=== PATIENT | female | born 1995 | race Caucasian/White ===

== ENCOUNTER 2017-09-12 15:08 | Emergency (ER) | payer OTHER ==
--- NOTE | 2017-09-12 15:48 | EDM.PDOC ---
ED HPI GENERAL MEDICAL PROBLEM - General Chief Complaint: Eye Problems Time Seen by Provider: 09/12/17 15:47 Source of Information: Reports: Patient History Limitations: Reports: No Limitations - History of Present Illness INITIAL COMMENTS - FREE TEXT/NARRATIVE: History of present illness: [22-year-old female comes in complaining of altered vision in the right eye. Patient discusses seeing a bright light colored floater in her right visual field. Patient denies total loss of vision, nausea vomiting or diarrhea. Patient indicates she went into a dark room or visual problems resolved. Patient initially describes something that sounds like a visual field cut on the right with further exploration it's a very bright floater that somewhat obliterates her vision because of the brightness.] Review of systems: As per history of present illness and below otherwise all systems reviewed and negative. Past medical history: As per history of present illness and as reviewed below otherwise noncontributory. Surgical history: As per history of present illness and as reviewed below otherwise noncontributory. Social history: No reported history of drug or alcohol abuse. Family history: As per history of present illness and as reviewed below otherwise noncontributory. Physical exam: HEENT: Atraumatic, normocephalic, pupils reactive, negative for conjunctival pallor or scleral icterus, mucous membranes moist, throat clear, neck supple, nontender, trachea midline. Facial tenderness over maxillary sinuses as well as periorbital sinuses right greater than left. Lungs: Clear to auscultation, breath sounds equal bilaterally, chest nontender. Heart: S1S2, regular, negative for clicks, rubs, or JVD. Abdomen: Soft, nondistended, nontender. Negative for masses or hepatosplenomegaly. Negative for costovertebral tenderness. Pelvis: Stable nontender. Genitourinary: Deferred. Rectal: Deferred. Extremities: Atraumatic, negative for cords or calf pain. Neurovascular unremarkable. Neuro: Awake, alert, oriented. Cranial nerves II through XII unremarkable. Cerebellum unremarkable. Motor and sensory unremarkable throughout. Exam nonfocal. Tonometry performed with numbers being 10, 12, 11. Patient indicates the pressure in the right side of her face increases when she is laid back Patient is having muscle spasms in her neck in the area of the levator scapula, the sternocleidomastoid, and the scalenes, with a concomitant tension headache. OB down to evaluate patient with a non-concerning NST but mild contractions noted to be occurring one every 3 minutes. Patient apparently does not perceive them per the OB nurse but they are mildly palpable. Dr. Alvarenga spoke with Dr. Montaño who indicated patient should go up to OB for further workup and evaluation. Diagnostics: [] Therapeutics: [Loratadine] Impression: [Sinusitus] Plan: [OB] Definitive disposition and diagnosis as appropriate pending reevaluation and review of above. left eye Pain Score (Numeric/FACES): 7 - Related Data Allergies Allergy/AdvReac Type Severity Reaction Status Date / Time No Known Allergies Allergy Verified 09/12/17 15:23 Home Meds: Home Meds Odp210/FA/Omega3/Dha/Fish Oil [ Gummies] 1 each PO DAILY 09/12/17 [ History] Past Medical History - Past Surgical History HEENT Surgical History: Reports: Oral Surgery Social & Family History - Family History Family Medical History: Noncontributory - Tobacco Use Smoking Status *Q: Never Smoker - Recreational Drug Use Recreational Drug Use: No ED ROS GENERAL - Review of Systems Review Of Systems: See Below (History of present illness) ED EXAM GENERAL W FULL EYE - Physical Exam Exam: See Below (History of present illness) Course - Vital Signs Last Recorded V/S: Last Vital Signs Temp 36.8 C 09/12/17 15:23 Pulse 98 09/12/17 15:23 Resp 18 09/12/17 15:23 BP 103/77 09/12/17 15:23 Pulse Ox 98 09/12/17 15:23 - Orders/Labs/Meds Meds: Medications Discontinued Medications Generic Name Dose Route Start Last Admin Trade Name Cecilioq PRN Reason Stop Dose Admin Loratadine 10 mg 09/12/17 15:49 09/12/17 16:02 Claritin PO 09/12/17 15:50 10 mg ONETIME ONE Administration Departure - Departure Time of Disposition: 16:22 Disposition: Still A Patient 30 Condition: Good Clinical Impression: Sinusitis - Discharge Information Referrals: PCP,None [Primary Care Provider] - Forms: ED Department Discharge
[2017-09-12] MEDS ORDERED: Loratadine 10 MG Tab PO ONE (15:49)
== END 2017-09-12 16:27 | disposition still patient (30) ==
LOC: MW.ED 15:08 → EDSTATUS 15:15 → MW.ED 16:27
DX: O99.513 Diseases of the respiratory system complicating pregnancy, third trimester (principal); J32.9 Chronic sinusitis, unspecified; Z3A.33 33 weeks gestation of pregnancy
CPT/HCPCS: 99283; A9270

== ENCOUNTER 2017-10-27 16:56 | Inpatient (IN) | payer OTHER ==
[2017-10-27] MEDS ORDERED: Tranexamic Acid 1,000 MG in Sodium Chloride 0.9% 100 ML IV PRN (17:10)
[2017-10-27] MEDS ORDERED: Nalbuphine 10 MG/1 ML Vial IVPUSH PRN (17:10)
[2017-10-27] MEDS ORDERED: Methylergonovine 0.2 MG/1 ML Amp IM PRN (17:10)
[2017-10-27] MEDS ORDERED: Carboprost Tromethamine 250 MCG/1 ML Amp IM PRN (17:10)
[2017-10-27] MEDS ORDERED: Sodium Chloride 0.9% 10 ML Syringe FLUSH PRN (17:10)
[2017-10-27] MEDS ORDERED: Lidocaine 1% 50 ML MDV INJECT PRN (17:10)
[2017-10-27] MEDS ORDERED: Sodium Chloride 0.9% 2.5 ML Syringe FLUSH PRN (17:10)
[2017-10-27] MEDS ORDERED: Misoprostol 25 MCG (1/4 of 100 MCG) Tab VAG PRN (17:10)
[2017-10-27] MEDS ORDERED: Water For Irrigation,Sterile 1,000 ML Container IRR PRN (17:10)
[2017-10-27] MEDS ORDERED: Butorphanol 1 MG/ML SDV IVPUSH PRN (17:10)
[2017-10-27] MEDS ORDERED: Misoprostol 200 MCG Tab PO PRN (17:10)
[2017-10-27] MEDS ORDERED: Misoprostol 25 MCG (1/4 of 100 MCG) Tab VAG SCH (17:15)
[2017-10-27] MEDS ORDERED: Oxytocin/0.9 % Sodium Chloride 30 UNIT/500 ML BAG IV SCH (17:15)
--- NOTE | 2017-10-27 17:50 | PCM.SN ---
- Free Text/Narrative Note: Notified by nursing that they are having difficulty obtaining PIV access. 18g PIV started to the Rt FA. Secured with tape and tegaderm. Pt tolerated placement well.
[2017-10-27] MEDS: Lactated Ringers 1,000 ML IV SCH (21:50)
[2017-10-27] MEDS: Terbutaline 1 MG/ML SDV SUBCUT PRN (22:14)
[2017-10-28] MEDS: Lactated Ringers 1,000 ML IV SCH ×2 (03:15→13:00)
[2017-10-28] MEDS: Terbutaline 1 MG/ML SDV SUBCUT PRN (03:24)
[2017-10-28] MEDS ORDERED: Oxytocin/0.9 % Sodium Chloride 30 UNIT/500 ML BAG IV SCH (05:00)
[2017-10-28] MEDS ORDERED: Ropivacaine 0.2% 2 MG/ML 20 ML SDV ONE (12:24)
--- NOTE | 2017-10-28 12:53 | PCM.PREANE ---
Preanesthetic Assessment - Anesthesia/Transfusion/Family Hx Anesthesia History: Prior Anesthesia Without Reaction Family History of Anesthesia Reaction: No - Review of Systems Other: Reports: None - Physical Assessment Height: 5 ft 1 in Weight: 67.585 kg ASA Class: 2 Mental Status: Alert & Oriented x3 Airway Class: Mallampati = 1 Dentition: Reports: Normal Dentition Thyro-Mental Finger Breadths: 3 Mouth Opening Finger Breadths: 3 ROM/Head Extension: Full - Lab Values: Laboratory Last Values WBC 12.61 K/uL (4.0-11.0) H 10/27/17 17:40 RBC 4.13 M/uL (4.30-5.90) L 10/27/17 17:40 Hgb 11.4 g/dL (12.0-16.0) L 10/27/17 17:40 Hct 34.1 % (36.0-46.0) L 10/27/17 17:40 MCV 82.6 fL (80.0-98.0) 10/27/17 17:40 MCH 27.6 pg (27.0-32.0) 10/27/17 17:40 MCHC 33.4 g/dL (31.0-37.0) 10/27/17 17:40 RDW Std Deviation 46.6 fl (28.0-62.0) 10/27/17 17:40 RDW Coeff of Jackie 16 % (11.0-15.0) H 10/27/17 17:40 Plt Count 182 K/uL (150-400) 10/27/17 17:40 MPV 11.40 fL (7.40-12.00) 10/27/17 17:40 Nucleated RBC % 0.0 /100WBC 10/27/17 17:40 Nucleated RBCs # 0 K/uL 10/27/17 17:40 Blood Type A POSITIVE 10/27/17 17:40 Antibody Screen NEGATIVE 10/27/17 17:40 - Allergies Allergies/Adverse Reactions: Allergies Allergy/AdvReac Type Severity Reaction Status Date / Time No Known Allergies Allergy Verified 09/12/17 15:23 - Blood Blood Available: Yes Product(s) Available: PRBC - Acknowledgements Anesthesia Type Planned: Epidural Pt an Appropriate Candidate for the Planned Anesthesia: Yes Alternatives and Risks of Anesthesia Discussed w Pt/Guardian: Yes Pt/Guardian Understands and Agrees with Anesthesia Plan: Yes PreAnesthesia Questionnaire - Past Health History Medical/Surgical History: Denies Medical/Surgical History - Past Surgical History HEENT Surgical History: Reports: Oral Surgery - SUBSTANCE USE Smoking Status *Q: Never Smoker Second Hand Smoke Exposure: No Recreational Drug Use History: No - HOME MEDS Home Medications: Home Meds Eog998/FA/Omega3/Dha/Fish Oil [ Gummies] 1 each PO DAILY 09/12/17 [ History] - CURRENT (IN HOUSE) MEDS Current Meds: Current Medications Butorphanol Tartrate (Stadol) 1 mg IVPUSH Q1H PRN PRN Reason: Pain Carboprost Tromethamine (Hemabate Ds) 250 mcg IM ASDIRECTED PRN PRN Reason: Post Hemorrhage Lactated Ringer's (Ringers, Lactated) 1,000 mls @ 150 mls/hr IV ASDIRECTED SHAHNAZ Last Admin: 10/28/17 03:15 Dose: 150 mls/hr Oxytocin/Sodium Chloride (Oxytocin 30 Unit/500 Ml-Ns) 30 unit in 500 mls @ 999 mls/hr IV TITRATE SHAHNAZ Oxytocin/Sodium Chloride (Oxytocin 30 Unit/500 Ml-Ns) 30 unit in 500 mls @ 2 mls/hr IV TITRATE SHAHNAZ; 2 MUNITS/MIN PRN Reason: Protocol Last Titration: 10/28/17 10:40 Dose: 3 munits/min, 3 mls/hr Tranexamic Acid 1,000 mg/ (Sodium Chloride) 110 mls @ 600 mls/hr IV ONETIME PRN PRN Reason: Bleeding Lidocaine HCl (Xylocaine 1%) 50 ml INJECT .ONCE PRN PRN Reason: Laceration repair Methylergonovine Maleate (Methergine) 0.2 mg IM ASDIRECTED PRN PRN Reason: Post Hemorrhage Misoprostol (Cytotec) 200 mcg PO .ONCE PRN PRN Reason: Post Hemorrhage Misoprostol (Cytotec) 25 mcg VAG .ONCE SHAHNAZ Misoprostol (Cytotec) 25 mcg VAG Q4H PRN PRN Reason: Cervical Ripening Last Admin: 10/27/17 17:58 Dose: 25 mcg Nalbuphine HCl (Nubain) 10 mg IVPUSH Q1H PRN PRN Reason: Pain (severe 7-10) Sodium Chloride (Saline Flush) 10 ml FLUSH ASDIRECTED PRN PRN Reason: Keep Vein Open Sodium Chloride (Saline Flush) 2.5 ml FLUSH ASDIRECTED PRN PRN Reason: Keep Vein Open Sterile Water (Sterile Water For Irrigation) 1,000 ml IRR ASDIRECTED PRN PRN Reason: delivery Terbutaline Sulfate (Brethine) 0.25 mg SUBCUT ASDIRECTED PRN PRN Reason: Tacysystole Last Admin: 10/28/17 03:24 Dose: 0.25 mg Discontinued Medications Fentanyl/Bupivacaine HCl (Zqyslmzc-Bqksw-Rz 2 Mcg/Ml-0.125%) Confirm Administered Dose 100 mls @ as directed EP .STK-MED ONE Stop: 10/28/17 12:25 Ropivacaine (Naropin 0.2%) Confirm Administered Dose 20 ml .ROUTE .STK-MED ONE Stop: 10/28/17 12:25
[2017-10-28] MEDS ORDERED: Ondansetron 4 MG/2 ML SDV IVPUSH ONE (14:20)
[2017-10-28] MEDS ORDERED: Ondansetron 4 MG/2 ML SDV ONE (14:22)
[2017-10-28] MEDS ORDERED: oxyCODONE 5 MG Tab PO PRN (17:18)
[2017-10-28] MEDS ORDERED: Witch Hazel Medicated Pads 40/Jar TOP PRN (17:18)
[2017-10-28] MEDS ORDERED: Lanolin 100% Cream 7 GM Tube TOP PRN (17:18)
[2017-10-28] MEDS ORDERED: Docusate Sodium 100 MG Cap PO PRN (17:18)
[2017-10-28] MEDS ORDERED: Bisacodyl 10 MG Supp RECTAL PRN (17:18)
[2017-10-28] MEDS ORDERED: Benzocaine/Menthol 20%-0.5% Spray 78 GM Cannister TOP PRN (17:18)
[2017-10-28] MEDS ORDERED: Ibuprofen 400 MG Tab PO PRN (17:18)
[2017-10-28] MEDS ORDERED: Acetaminophen 500 MG Tab PO PRN ×2 (17:18)
--- NOTE | 2017-10-28 18:14 | PCM48HPAN ---
Post Anesthesia Note - EVALUATION WITHIN 48HRS OF ANESTHETIC Vital Signs in Normal Range: Yes Patient Participated in Evaluation: Yes Respiratory Function Stable: Yes Airway Patent: Yes Cardiovascular Function Stable: Yes Hydration Status Stable: Yes Pain Control Satisfactory: Yes Nausea and Vomiting Control Satisfactory: Yes Mental Status Recovered: Yes
[2017-10-28] MEDS: Ibuprofen 800 MG Tab PO PRN (21:02)
--- NOTE | 2017-10-28 22:29 | OR ---
SURGEON: Dipiak Montaño M.D. DATE OF PROCEDURE: 10/28/2017 PREOPERATIVE DIAGNOSES: 1. A 40 and 2-week intrauterine . 2. Polyhydramnios. POSTOPERATIVE DIAGNOSES: 1. A 40 and 2-week intrauterine . 2. Polyhydramnios. PROCEDURE: 1. Spontaneous vaginal delivery. 2. Second-degree midline laceration repaired. PRIMARY SURGEON: Dipika Montaño M.D. ANESTHESIA: Epidural. ESTIMATED BLOOD LOSS: 350 mL. COMPLICATIONS: None. FINDINGS: Term female, score 9 at one minute, 10 at five minutes. Weight is pending. Spontaneous delivery, intact placenta, 3-vessel cord. DISPOSITION: to nursery, mom in LDRP, stable. DESCRIPTION OF PROCEDURE: Lisa lechuga is a 22-year-old G1, P0, at 42 weeks gestational age, who presented on the evening of 10/27/2017 for scheduled induction of labor due to polyhydramnios, term gestation. On admission, the patient was found to be 1-2 cm. She was admitted, routine labs were drawn. heart tones in the 140s. 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 She did receive two doses of terbutaline for the hyperstimulation and late deceleration that were occurring with it. Thereafter the heart tones once again resuscitated to 140s with good variability. No deceleration was noted. Therefore low-dose Pitocin was initiated on the morning of 10/28/2017. The patient became uncomfortable. heart tones remained category one. The patient was allowed to ambulate within the room. Shortly before noon she agreed to undergo amniotomy, this was performed successfully, large amount of clear fluid was returned and thereafter she began to progress more rapidly. She became much more comfortable. She was found to be approximately 3 cm at that time. Shortly before receiving her epidural, she was found to be 4 cm dilatated, 9 cm, -1 station. Underwent epidural satisfactorily, became more comfortable. heart tones remained in the 130s to 140s and the patient progressed through the afternoon hours. Shortly before 4:00 p.m., the patient was feeling some pressure, but otherwise comfortable with the epidural. She was found to be complete, 100% effaced, +2 station. heart tones remained in the 140s, therefore she began pushing efforts. Pitocin was only at 3 milliunits per minute per minute. The patient pushed for approximately 30 minutes, was found to be a +3 station. I was called for delivery. Upon arrival, the patient was placed in modified dorsal position, prepped and draped in the usual aseptic manner. Continuing with pushing efforts, was able to deliver infant's head atraumatically, spontaneously, followed by anterior shoulder, posterior shoulder, remainder of the body. There was nuchal cord x1, reduced manually. The 's oropharynx and nares were bulb suctioned. Cord was clamped x2 and cut. Infant was handed off to her mother, attending nursing staff at her side. Cord arterial, cord venous, cord blood sampling was obtained. Light suprapubic pressure was applied while the placenta was delivered spontaneously intact. Vigorous fundal uterine massage was then applied while 30 units Pitocin was delivered in 500 mL IV fluid. Upon inspection of cervix, vaginal sidewalls, and perineum, there was found to be a second-degree midline laceration, repaired using 2-0 Vicryl in usual fashion. There was also a first-degree right hymenal laceration, was repaired using 3-0 Vicryl with [id number] suture. Hemostasis thereafter evident. Uterus remained firm. Hemostasis remained evident. Sponge count and needle count were correct. The patient remained in LDRP. Infant in nursery. ELSA / LOUIE /[id number] ANDREI
[2017-10-29] MEDS: Ibuprofen 800 MG Tab PO PRN ×2 (07:49→18:10)
--- NOTE | 2017-10-29 08:14 | PCM.PNPP ---
<Deana Valencia - Last Filed: 10/29/17 08:12> - General Info Date of Service: 10/29/17 Functional Status: Reports: Pain Controlled, Tolerating Diet, Ambulating, Urinating - Review of Systems General: Denies: Fever, Weakness, Fatigue Pulmonary: Denies: Shortness of Breath, Pleuritic Chest Pain, Cough Cardiovascular: Denies: Chest Pain, Palpitations, Dyspnea on Exertion Gastrointestinal: Denies: Abdominal Pain Genitourinary: Denies: Dysuria - General Info Date of Service: 10/29/17 - Patient Data Vital Signs - Most Recent: Last Vital Signs Temp 36.3 C 10/29/17 06:00 Pulse 72 10/29/17 06:00 Resp 16 10/29/17 06:00 BP 117/63 10/29/17 06:00 Pulse Ox 99 10/29/17 06:00 Weight - Most Recent: 67.585 kg I&O - Last 24 Hours: Intake & Output 10/28/17 10/29/17 10/29/17 22:59 06:59 14:59 Intake Total 500 Balance 500 Lab Results - Last 24 Hours: Laboratory Results - last 24 hr 10/29/17 Range/Units 06:37 Hgb 9.5 L (12.0-16.0) g/dL Hct 29.3 L (36.0-46.0) % Med Orders - Current: Current Medications Acetaminophen (Tylenol Extra Strength) 500 mg PO Q4H PRN PRN Reason: Pain Acetaminophen (Tylenol Extra Strength) 1,000 mg PO Q4H PRN PRN Reason: Pain Benzocaine/Menthol (Dermoplast Pain Relief 20%-0.5% Foster) 78 gm TOP ASDIRECTED PRN PRN Reason: Perineal Comfort Measure Bisacodyl (Dulcolax) 10 mg RECTAL .ONCE PRN PRN Reason: Constipation Carboprost Tromethamine (Hemabate Ds) 250 mcg IM ASDIRECTED PRN PRN Reason: Post Hemorrhage Docusate Sodium (Colace) 100 mg PO BID PRN PRN Reason: Constipation Emollient Ointment (Lansinoh Hpa) 0 gm TOP ASDIRECTED PRN PRN Reason: Sore Nipples Lactated Ringer's (Ringers, Lactated) 1,000 mls @ 150 mls/hr IV ASDIRECTED SHAHNAZ Last Admin: 10/28/17 13:00 Dose: 500 mls/hr Oxytocin/Sodium Chloride (Oxytocin 30 Unit/500 Ml-Ns) 30 unit in 500 mls @ 999 mls/hr IV TITRATE SHAHNAZ Last Infusion: 10/28/17 18:29 Dose: 250 mls/hr Oxytocin/Sodium Chloride (Oxytocin 30 Unit/500 Ml-Ns) 30 unit in 500 mls @ 2 mls/hr IV TITRATE SHAHNAZ; 2 MUNITS/MIN PRN Reason: Protocol Last Titration: 10/28/17 10:40 Dose: 3 munits/min, 3 mls/hr Tranexamic Acid 1,000 mg/ (Sodium Chloride) 110 mls @ 600 mls/hr IV ONETIME PRN PRN Reason: Bleeding Ibuprofen (Motrin) 400 mg PO Q4H PRN PRN Reason: Pain Ibuprofen (Motrin) 800 mg PO Q6H PRN PRN Reason: Pain Last Admin: 10/29/17 07:49 Dose: 800 mg Lidocaine HCl (Xylocaine 1%) 50 ml INJECT .ONCE PRN PRN Reason: Laceration repair Methylergonovine Maleate (Methergine) 0.2 mg IM ASDIRECTED PRN PRN Reason: Post Hemorrhage Misoprostol (Cytotec) 200 mcg PO .ONCE PRN PRN Reason: Post Hemorrhage Nalbuphine HCl (Nubain) 10 mg IVPUSH Q1H PRN PRN Reason: Pain (severe 7-10) Oxycodone HCl (Oxycodone) 5 mg PO Q2H PRN PRN Reason: Pain Sodium Chloride (Saline Flush) 10 ml FLUSH ASDIRECTED PRN PRN Reason: Keep Vein Open Sodium Chloride (Saline Flush) 2.5 ml FLUSH ASDIRECTED PRN PRN Reason: Keep Vein Open Terbutaline Sulfate (Brethine) 0.25 mg SUBCUT ASDIRECTED PRN PRN Reason: Tacysystole Last Admin: 10/28/17 03:24 Dose: 0.25 mg Witch Franny (Tucks) 1 pad TOP ASDIRECTED PRN PRN Reason: comfort care Discontinued Medications Butorphanol Tartrate (Stadol) 1 mg IVPUSH Q1H PRN PRN Reason: Pain Fentanyl/Bupivacaine HCl (Wsqnpzjd-Sktmu-Co 2 Mcg/Ml-0.125%) Confirm Administered Dose 100 mls @ as directed EP .STK-MED ONE Stop: 10/28/17 12:25 Misoprostol (Cytotec) 25 mcg VAG .ONCE SHAHNAZ Misoprostol (Cytotec) 25 mcg VAG Q4H PRN PRN Reason: Cervical Ripening Last Admin: 10/27/17 17:58 Dose: 25 mcg Ondansetron HCl (Zofran) 4 mg IVPUSH ONETIME ONE Stop: 10/28/17 14:21 Last Admin: 10/28/17 14:26 Dose: 4 mg Ondansetron HCl (Zofran) Confirm Administered Dose 4 mg .ROUTE .STK-MED ONE Stop: 10/28/17 14:23 Ropivacaine (Naropin 0.2%) Confirm Administered Dose 20 ml .ROUTE .STK-MED ONE Stop: 10/28/17 12:25 Sterile Water (Sterile Water For Irrigation) 1,000 ml IRR ASDIRECTED PRN PRN Reason: delivery Last Admin: 10/28/17 16:45 Dose: 1,000 ml - Interaction Disposition, : to Nursery Infant Feeding: Attempted ; Nursed Fair/Poor Support Person: - Recovery Exam Fundal Tone: Firm Fundal Level: At Umbilicus Fundal Placement: Midline Lochia Amount: Small Lochia Color: Rubra/Red Perineum Description: Edematous Episiotomy/Laceration: Approximated Urinary Elimination: Voided - Exam General: Alert, Oriented Neck: Supple Lungs: Clear to Auscultation, Normal Respiratory Effort Cardiovascular: Regular Rate, Regular Rhythm GI/Abdominal Exam: Normal Bowel Sounds, Soft, No Distention Extremities: Normal Inspection, Pedal Edema (trace) Skin: Warm, Dry, Intact - Problem List & Annotations (1) Vaginal delivery SNOMED Code(s): 569358092 Code(s): O80 - ENCOUNTER FOR FULL-TERM UNCOMPLICATED DELIVERY Status: Acute Current Visit: Yes - Problem List Review Problem List Initiated/Reviewed/Updated: Yes - Assessment Assessment:: PPD#1 from . Minimal pain and lochia. Work on breast feeding today. Anticipate discharge home tomorrow. - Plan Plan:: Continue routine post- cares. Aim for discharge tomorrow. <Dipika Montaño R - Last Filed: 10/29/17 08:34> - Patient Data Vital Signs - Most Recent: Last Vital Signs Temp 36.3 C 10/29/17 06:00 Pulse 72 10/29/17 06:00 Resp 16 10/29/17 06:00 BP 117/63 10/29/17 06:00 Pulse Ox 99 10/29/17 06:00 I&O - Last 24 Hours: Intake & Output 10/28/17 10/29/17 10/29/17 22:59 06:59 14:59 Intake Total 500 Balance 500 Lab Results - Last 24 Hours: Laboratory Results - last 24 hr 10/29/17 Range/Units 06:37 Hgb 9.5 L (12.0-16.0) g/dL Hct 29.3 L (36.0-46.0) % Med Orders - Current: Current Medications Acetaminophen (Tylenol Extra Strength) 500 mg PO Q4H PRN PRN Reason: Pain Acetaminophen (Tylenol Extra Strength) 1,000 mg PO Q4H PRN PRN Reason: Pain Benzocaine/Menthol (Dermoplast Pain Relief 20%-0.5% Foster) 78 gm TOP ASDIRECTED PRN PRN Reason: Perineal Comfort Measure Bisacodyl (Dulcolax) 10 mg RECTAL .ONCE PRN PRN Reason: Constipation Carboprost Tromethamine (Hemabate Ds) 250 mcg IM ASDIRECTED PRN PRN Reason: Post Hemorrhage Docusate Sodium (Colace) 100 mg PO BID PRN PRN Reason: Constipation Emollient Ointment (Lansinoh Hpa) 0 gm TOP ASDIRECTED PRN PRN Reason: Sore Nipples Lactated Ringer's (Ringers, Lactated) 1,000 mls @ 150 mls/hr IV ASDIRECTED SHAHNAZ Last Admin: 10/28/17 13:00 Dose: 500 mls/hr Oxytocin/Sodium Chloride (Oxytocin 30 Unit/500 Ml-Ns) 30 unit in 500 mls @ 999 mls/hr IV TITRATE SHAHNAZ Last Infusion: 10/28/17 18:29 Dose: 250 mls/hr Oxytocin/Sodium Chloride (Oxytocin 30 Unit/500 Ml-Ns) 30 unit in 500 mls @ 2 mls/hr IV TITRATE SHAHNAZ; 2 MUNITS/MIN PRN Reason: Protocol Last Titration: 10/28/17 10:40 Dose: 3 munits/min, 3 mls/hr Tranexamic Acid 1,000 mg/ (Sodium Chloride) 110 mls @ 600 mls/hr IV ONETIME PRN PRN Reason: Bleeding Ibuprofen (Motrin) 400 mg PO Q4H PRN PRN Reason: Pain Ibuprofen (Motrin) 800 mg PO Q6H PRN PRN Reason: Pain Last Admin: 10/29/17 07:49 Dose: 800 mg Lidocaine HCl (Xylocaine 1%) 50 ml INJECT .ONCE PRN PRN Reason: Laceration repair Methylergonovine Maleate (Methergine) 0.2 mg IM ASDIRECTED PRN PRN Reason: Post Hemorrhage Misoprostol (Cytotec) 200 mcg PO .ONCE PRN PRN Reason: Post Hemorrhage Nalbuphine HCl (Nubain) 10 mg IVPUSH Q1H PRN PRN Reason: Pain (severe 7-10) Oxycodone HCl (Oxycodone) 5 mg PO Q2H PRN PRN Reason: Pain Sodium Chloride (Saline Flush) 10 ml FLUSH ASDIRECTED PRN PRN Reason: Keep Vein Open Sodium Chloride (Saline Flush) 2.5 ml FLUSH ASDIRECTED PRN PRN Reason: Keep Vein Open Terbutaline Sulfate (Brethine) 0.25 mg SUBCUT ASDIRECTED PRN PRN Reason: Tacysystole Last Admin: 10/28/17 03:24 Dose: 0.25 mg Witch Franny (Tucks) 1 pad TOP ASDIRECTED PRN PRN Reason: comfort care Discontinued Medications Butorphanol Tartrate (Stadol) 1 mg IVPUSH Q1H PRN PRN Reason: Pain Fentanyl/Bupivacaine HCl (Spcviffp-Rhpnn-Us 2 Mcg/Ml-0.125%) Confirm Administered Dose 100 mls @ as directed EP .STK-MED ONE Stop: 10/28/17 12:25 Misoprostol (Cytotec) 25 mcg VAG .ONCE SHAHNAZ Misoprostol (Cytotec) 25 mcg VAG Q4H PRN PRN Reason: Cervical Ripening Last Admin: 10/27/17 17:58 Dose: 25 mcg Ondansetron HCl (Zofran) 4 mg IVPUSH ONETIME ONE Stop: 10/28/17 14:21 Last Admin: 10/28/17 14:26 Dose: 4 mg Ondansetron HCl (Zofran) Confirm Administered Dose 4 mg .ROUTE .STK-MED ONE Stop: 10/28/17 14:23 Ropivacaine (Naropin 0.2%) Confirm Administered Dose 20 ml .ROUTE .STK-MED ONE Stop: 10/28/17 12:25 Sterile Water (Sterile Water For Irrigation) 1,000 ml IRR ASDIRECTED PRN PRN Reason: delivery Last Admin: 10/28/17 16:45 Dose: 1,000 ml - My Orders Last 24 Hours: My Active Orders 10/28/17 17:18 Patient Status [ADT] Routine May Shower [RC] ASDIRECTED Up ad Tracey [RC] ASDIRECTED Vital Signs [RC] PER UNIT ROUTINE Acetaminophen [Tylenol Extra Strength] 1,000 mg PO Q4H PRN Acetaminophen [Tylenol Extra Strength] 500 mg PO Q4H PRN Benzocaine/Menthol [Dermoplast Pain Relief 20%-0.5% Foster] 78 gm TOP ASDIRECTED PRN Bisacodyl [Dulcolax] 10 mg RECTAL .ONCE PRN Docusate Sodium [Colace] 100 mg PO BID PRN Ibuprofen [Motrin] 400 mg PO Q4H PRN Ibuprofen [Motrin] 800 mg PO Q6H PRN Lanolin [Lansinoh HPA] See Dose Instructions TOP ASDIRECTED PRN Witch Franny [Tucks] 1 pad TOP ASDIRECTED PRN oxyCODONE 5 mg PO Q2H PRN Assess Lochia [WOMSER] Per Unit Routine Assess Uterine Involution [WOMSER] Per Unit Routine Peripheral IV Discontinue [OM.PC] Routine 10/28/17 17:19 Ice Therapy [OM.PC] Per Unit Routine Perineal Care [OM.PC] Per Unit Routine Sitz Bath [OM.PC] Per Unit Routine 10/28/17 Dinner Regular Diet [DIET] - Plan Plan:: Patient seen and examined, agree with above.
[2017-10-30] MEDS ORDERED: Witch Hazel Medicated Pads 40/Jar TOP ONE (03:18)
[2017-10-30] MEDS: Ibuprofen 800 MG Tab PO PRN (04:21)
--- NOTE | 2017-10-30 09:01 | PCM.PNPP ---
- General Info Date of Service: 10/30/17 Functional Status: Reports: Pain Controlled, Tolerating Diet, Ambulating, Urinating - Review of Systems General: Denies: Fever, Weakness Pulmonary: Denies: Shortness of Breath Cardiovascular: Denies: Chest Pain, Palpitations, Lightheadedness Gastrointestinal: Denies: Abdominal Pain, Nausea, Vomiting Genitourinary: Denies: Flank Pain Neurological: Reports: No Symptoms Psychiatric: Reports: No Symptoms - General Info Date of Service: 10/30/17 - Patient Data Vital Signs - Most Recent: Last Vital Signs Temp 36.9 C 10/29/17 21:36 Pulse 65 10/29/17 21:36 Resp 16 10/29/17 21:36 BP 108/68 10/29/17 21:36 Pulse Ox 97 10/29/17 17:35 Weight - Most Recent: 67.585 kg Med Orders - Current: Current Medications Acetaminophen (Tylenol Extra Strength) 500 mg PO Q4H PRN PRN Reason: Pain Acetaminophen (Tylenol Extra Strength) 1,000 mg PO Q4H PRN PRN Reason: Pain Last Admin: 10/30/17 08:55 Dose: 1,000 mg Benzocaine/Menthol (Dermoplast Pain Relief 20%-0.5% [place]) 78 gm TOP ASDIRECTED PRN PRN Reason: Perineal Comfort Measure Bisacodyl (Dulcolax) 10 mg RECTAL .ONCE PRN PRN Reason: Constipation Carboprost Tromethamine (Hemabate Ds) 250 mcg IM ASDIRECTED PRN PRN Reason: Post Hemorrhage Docusate Sodium (Colace) 100 mg PO BID PRN PRN Reason: Constipation Emollient Ointment (Lansinoh Hpa) 0 gm TOP ASDIRECTED PRN PRN Reason: Sore Nipples Last Admin: 10/29/17 21:28 Dose: 1 applic Lactated Ringer's (Ringers, Lactated) 1,000 mls @ 150 mls/hr IV ASDIRECTED [facility] Last Admin: 10/28/17 13:00 Dose: 500 mls/hr Oxytocin/Sodium Chloride (Oxytocin 30 Unit/500 Ml-Ns) 30 unit in 500 mls @ 999 mls/hr IV TITRATE [facility] Last Infusion: 10/28/17 18:29 Dose: 250 mls/hr Oxytocin/Sodium Chloride (Oxytocin 30 Unit/500 Ml-Ns) 30 unit in 500 mls @ 2 mls/hr IV TITRATE SHAHNAZ; 2 MUNITS/MIN PRN Reason: Protocol Last Titration: 10/28/17 10:40 Dose: 3 munits/min, 3 mls/hr Tranexamic Acid 1,000 mg/ (Sodium Chloride) 110 mls @ 600 mls/hr IV ONETIME PRN PRN Reason: Bleeding Ibuprofen (Motrin) 400 mg PO Q4H PRN PRN Reason: Pain Ibuprofen (Motrin) 800 mg PO Q6H PRN PRN Reason: Pain Last Admin: 10/30/17 04:21 Dose: 800 mg Lidocaine HCl (Xylocaine 1%) 50 ml INJECT .ONCE PRN PRN Reason: Laceration repair Methylergonovine Maleate (Methergine) 0.2 mg IM ASDIRECTED PRN PRN Reason: Post Hemorrhage Misoprostol (Cytotec) 200 mcg PO .ONCE PRN PRN Reason: Post Hemorrhage Nalbuphine HCl (Nubain) 10 mg IVPUSH Q1H PRN PRN Reason: Pain (severe 7-10) Oxycodone HCl (Oxycodone) 5 mg PO Q2H PRN PRN Reason: Pain Sodium Chloride (Saline Flush) 10 ml FLUSH ASDIRECTED PRN PRN Reason: Keep Vein Open Sodium Chloride (Saline Flush) 2.5 ml FLUSH ASDIRECTED PRN PRN Reason: Keep Vein Open Terbutaline Sulfate (Brethine) 0.25 mg SUBCUT ASDIRECTED PRN PRN Reason: Tacysystole Last Admin: 10/28/17 03:24 Dose: 0.25 mg Witch Franny (Tucks) 1 pad TOP ASDIRECTED PRN PRN Reason: comfort care Discontinued Medications Butorphanol Tartrate (Stadol) 1 mg IVPUSH Q1H PRN PRN Reason: Pain Fentanyl/Bupivacaine HCl (Evipnhmn-Ismma-Hy 2 Mcg/Ml-0.125%) Confirm Administered Dose 100 mls @ as directed EP .STK-MED ONE Stop: 10/28/17 12:25 Misoprostol (Cytotec) 25 mcg VAG .ONCE SHAHNAZ Misoprostol (Cytotec) 25 mcg VAG Q4H PRN PRN Reason: Cervical Ripening Last Admin: 10/27/17 17:58 Dose: 25 mcg Ondansetron HCl (Zofran) 4 mg IVPUSH ONETIME ONE Stop: 10/28/17 14:21 Last Admin: 10/28/17 14:26 Dose: 4 mg Ondansetron HCl (Zofran) Confirm Administered Dose 4 mg .ROUTE .STK-MED ONE Stop: 10/28/17 14:23 Ropivacaine (Naropin 0.2%) Confirm Administered Dose 20 ml .ROUTE .STK-MED ONE Stop: 10/28/17 12:25 Sterile Water (Sterile Water For Irrigation) 1,000 ml IRR ASDIRECTED PRN PRN Reason: delivery Last Admin: 10/28/17 16:45 Dose: 1,000 ml Witch Franny (Tucks) Confirm Administered Dose 1 pad TOP .STK-MED ONE Stop: 10/30/17 03:19 Last Admin: 10/30/17 05:44 Dose: Not Given - Infant Interaction Disposition, : to Nursery Feeding: Attempted ; Nursed Fair/Poor Support Person: - Recovery Exam Fundal Tone: Firm Fundal Level: At Umbilicus Fundal Placement: Midline Lochia Amount: Small Lochia Color: Rubra/Red Perineum Description: Edematous Episiotomy/Laceration: Approximated Bladder Status: Voiding Urinary Elimination: Voided - Exam General: Alert, Oriented Lungs: Normal Respiratory Effort Cardiovascular: Regular Rate, Regular Rhythm GI/Abdominal Exam: Normal Bowel Sounds, Soft Extremities: Normal Capillary Refill, Pedal Edema (trace). No: Luke's Sign Skin: Warm, Dry, Intact Psy/Mental Status: Alert, Normal Affect - Problem List Review Problem List Initiated/Reviewed/Updated: Yes - My Orders Last 24 Hours: My Active Orders 10/30/17 08:59 Ready for Discharge [RC] PER UNIT ROUTINE - Assessment Assessment:: PPD#2 from . - Plan Plan:: Discharge to home today. Infection and bleeding warnings reviewed. Follow up at [facility] 6 weeks. Discharge instructions reviewed.
== END 2017-10-30 10:55 | disposition home or self-care (01) | DRG 775 ==
LOC: MW.OBCHECK 16:56 → MW.OB 16:58 → MW.OBCHECK 17:11 → UNDOADMOB 17:11 → INTOOBSV 17:18 → OBSVTOIN 17:18 → MW.OB 10-28 16:51 → OBSVTOIN 10-28 16:51 → MW.OB 10-28 22:00 → UNDODISIN 10-30 10:55
PROVIDERS: ADMIT Obstetrics & Gynecology; ATTEND Obstetrics & Gynecology
PROC: 10E0XZZ Delivery of Products of Conception, External Approach (ICD-10-PCS; principal; 2017-10-27)
PROC: 0KQM0ZZ Repair Perineum Muscle, Open Approach (ICD-10-PCS; 2017-10-27)
PROC: 3E0P7VZ Introduction of Hormone into Female Reproductive, Via Natural or Artificial Opening (ICD-10-PCS; 2017-10-27)
PROC: 3E033VJ Introduction of Other Hormone into Peripheral Vein, Percutaneous Approach (ICD-10-PCS; 2017-10-27)
PROC: 10907ZC Drainage of Amniotic Fluid, Therapeutic from Products of Conception, Via Natural or Artificial Opening (ICD-10-PCS; 2017-10-27)
DX: O40.3XX0 Polyhydramnios, third trimester, not applicable or unspecified (principal); O70.1 Second degree perineal laceration during delivery; O69.1XX0 Labor and delivery complicated by cord around neck, with compression, not applicable or unspecified; Z3A.40 40 weeks gestation of pregnancy; Z37.0 Single live birth
CPT/HCPCS: 01967; 36410; 36415; 59025; 59409; 85014; 85018; 85027; 86850; 86900; 86901; A9270-GY; J2405; J2590; J3105; J7120

== ENCOUNTER 2019-08-29 02:56 | Emergency (ER) | payer OTHER ==
[2019-08-29] MEDS ORDERED: Morphine 10 MG/ML Syringe IVPUSH ONE (03:20)
[2019-08-29] MEDS ORDERED: Ondansetron 4 MG/2 ML SDV IVPUSH ONE ×2 (03:22→05:38)
[2019-08-29 03:39] LABS: BLOOD UREA NITROGEN,BUN 13 mg/dL (7.0-18.0); CARBON DIOXIDE,CO2 26.5 mmol/L (21.0-32.0); CHLORIDE,CL 103 mmol/L (98-107); GLUCOSE RANDOM 98 mg/dL (74-106); POTASSIUM,K 3.7 mmol/L (3.5-5.1); SODIUM,NA 139 mmol/L (136-145)
[2019-08-29] MEDS ORDERED: Methocarbamol 750 MG TAB PO ONE (04:16)
[2019-08-29] MEDS ORDERED: Methocarbamol 750 MG TAB PO STA (04:27)
--- NOTE | 2019-08-29 04:39 | CR ---
INDICATION: 1 image. chest pain. no prior TECHNIQUE: Chest 1 view. COMPARISON: None. FINDINGS: Cardiovascular and mediastinum: Heart size and vasculature are normal in caliber and appearance. Mediastinum is within normal limits. Lungs and pleural space: Lungs are clear. No sign of infiltrate or mass. No sign of pleural effusion. No pneumothorax. Bones and soft tissues: No significant findings. IMPRESSION: Unremarkable chest. Dictated by: Marcel Schmitt MD @ 08/29/2019 04:36:26 (Electronically Signed)
[2019-08-29] MEDS ORDERED: Cyclobenzaprine 10 MG Tab PO ONE (04:54)
--- NOTE | 2019-08-29 05:06 | EDM.PDOC ---
ED HPI GENERAL MEDICAL PROBLEM - General Chief Complaint: Chest Pain Stated Complaint: CHEST PAIN AND SHORTNESS OF BREATH Time Seen by Provider: 08/29/19 05:02 Source of Information: Reports: Patient History Limitations: Reports: No Limitations - History of Present Illness INITIAL COMMENTS - FREE TEXT/NARRATIVE: Patient is a 24-year-old female with no past medical history presenting with chief complaint of chest pain. The chest pain radiates to the right side of the neck as well as the right shoulder. The pain started after so much pain a movie earlier this evening. However patient woke suddenly with increasing pain earlier this morning. States it hurts to take a deep breath it hurts to move her arm or neck. Denies any headache or dizziness. Patient denies similar history of this pain. Patient denies OCP use, leg swelling, recent surgery, recent travel, recent illness. Patient has no fevers, chills, nausea, vomiting. No systems in addition to that documented in the HPI above, the additional ROS was obtained: Constitutional: Denies fevers or chills Eyes: Denies vision changes ENMT: Denies sore throat CV: Per HPI Resp: Per HPI GI: Denies vomiting or diarrhea : Denies painful urination MSK: Denies recent trauma Skin: Denies new rashes Neuro: Denies new numbness or tingling or weakness Endocrine: Denies unexpected weight loss Heme: Denies bleeding disorders I have reviewed the triage vital signs Const: Well nourished, well developed, appears moderately uncomfortable. Eyes: PERRL, no conjunctival injection HENT: NCAT, Neck supple without meningismus CV: RRR, Warm, well-perfused extremities RESP: CTAB, Unlabored respiratory effort GI: soft, non-tender, non-distended, no masses MSK: No gross deformities appreciated Skin: Warm, dry. No rashes Neuro: Alert, seo executive II-XII grossly intact. Sensation and motor function of extremities grossly intact. Psych: Appropriate mood and affect R chest/Back Pain Score (Numeric/FACES): 10 - Related Data Allergies Allergy/AdvReac Type Severity Reaction Status Date / Time No Known Allergies Allergy Verified 08/29/19 03:19 Home Meds: Home Meds B12/Levomefolate Calcium/B-6 [Foltx Tablet] 1 each PO DAILY 08/29/19 [History] L.acidoph,Paracasei, B.lactis [Probiotic] 1 each PO DAILY 08/29/19 [History] Mv,Real,Iron,Mn/Folic Acid/Chol [Hair, Skin and Nails Capsule] 1 tab PO DAILY [History] Past Medical History - Past Health History Medical/Surgical History: Denies Medical/Surgical History - Past Surgical History HEENT Surgical History: Reports: Oral Surgery Social & Family History - Family History Family Medical History: Noncontributory - Tobacco Use Smoking Status *Q: Never Smoker - Caffeine Use Caffeine Use: Reports: Coffee - Recreational Drug Use Recreational Drug Use: No ED ROS GENERAL - Review of Systems Review Of Systems: See Below ED EXAM, GENERAL - Physical Exam Exam: See Below Course - Vital Signs Last Recorded V/S: Last Vital Signs Temp 36.8 C 08/29/19 03:13 Pulse 100 08/29/19 03:13 Resp 20 08/29/19 03:13 BP 137/96 H 08/29/19 03:13 Pulse Ox 98 08/29/19 03:13 - Orders/Labs/Meds Orders: Active Orders 24 hr Category Date Time Status EKG 12 Lead [EKG Documentation Completion] [RC] STAT Care 08/29/19 03:24 Active Labs: Laboratory Tests 08/29/19 08/29/19 08/29/19 Range/Units 03:04 03:04 03:04 WBC 11.64 H (4.0-11.0) K/uL RBC 5.00 (4.30-5.90) M/uL Hgb 13.4 (12.0-16.0) g/dL Hct 41.5 (36.0-46.0) % MCV 83.0 (80.0-98.0) fL MCH 26.8 L (27.0-32.0) pg MCHC 32.3 (31.0-37.0) g/dL RDW Std Deviation 45.5 (28.0-62.0) fl RDW Coeff of Jackie 15 (11.0-15.0) % Plt Count 303 (150-400) K/uL MPV 10.50 (7.40-12.00) fL Neut % (Auto) 56.8 (48.0-80.0) % Lymph % (Auto) 33.0 (16.0-40.0) % [place] % (Auto) 8.0 (0.0-15.0) % Eos % (Auto) 1.9 (0.0-7.0) % Baso % (Auto) 0.3 (0.0-1.5) % Neut # (Auto) 6.6 H (1.4-5.7) K/uL Lymph # (Auto) 3.8 H (0.6-2.4) K/uL [place] # (Auto) 0.9 H (0.0-0.8) K/uL Eos # (Auto) 0.2 (0.0-0.7) K/uL Baso # (Auto) 0.0 (0.0-0.1) K/uL Nucleated RBC % 0.0 /100WBC Nucleated RBCs # 0 K/uL D-Dimer, Quantitative < 0.19 (0.0-0.50) mg/L FEU Sodium 139 (136-145) mmol/L Potassium 3.7 (3.5-5.1) mmol/L Chloride 103 (98-107) mmol/L Carbon Dioxide 26.5 (21.0-32.0) mmol/L BUN 13 (7.0-18.0) mg/dL Creatinine 0.7 (0.6-1.0) mg/dL Est Cr Clr Drug Dosing TNP Estimated GFR (MDRD) > 60.0 ml/min Glucose 98 (74-106) mg/dL Calcium 8.9 (8.5-10.1) mg/dL Total Bilirubin 0.2 (0.2-1.0) mg/dL AST 18 (15-37) IU/L ALT 20 (14-63) IU/L Alkaline Phosphatase 68 (46-116) U/L Troponin I < 0.050 (0.000-0.056) ng/mL Total Protein 8.1 (6.4-8.2) g/dL Albumin 4.3 (3.4-5.0) g/dL Globulin 3.8 (2.6-4.0) g/dL Albumin/Globulin Ratio 1.1 (0.9-1.6) HCG, Quant mIU/mL 08/29/19 Range/Units 03:04 WBC (4.0-11.0) K/uL RBC (4.30-5.90) M/uL Hgb (12.0-16.0) g/dL Hct (36.0-46.0) % MCV (80.0-98.0) fL MCH (27.0-32.0) pg MCHC (31.0-37.0) g/dL RDW Std Deviation (28.0-62.0) fl RDW Coeff of Jackie (11.0-15.0) % Plt Count (150-400) K/uL MPV (7.40-12.00) fL Neut % (Auto) (48.0-80.0) % Lymph % (Auto) (16.0-40.0) % [place] % (Auto) (0.0-15.0) % Eos % (Auto) (0.0-7.0) % Baso % (Auto) (0.0-1.5) % Neut # (Auto) (1.4-5.7) K/uL Lymph # (Auto) (0.6-2.4) K/uL [place] # (Auto) (0.0-0.8) K/uL Eos # (Auto) (0.0-0.7) K/uL Baso # (Auto) (0.0-0.1) K/uL Nucleated RBC % /100WBC Nucleated RBCs # K/uL D-Dimer, Quantitative (0.0-0.50) mg/L FEU Sodium (136-145) mmol/L Potassium (3.5-5.1) mmol/L Chloride (98-107) mmol/L Carbon Dioxide (21.0-32.0) mmol/L BUN (7.0-18.0) mg/dL Creatinine (0.6-1.0) mg/dL Est Cr Clr Drug Dosing Estimated GFR (MDRD) ml/min Glucose (74-106) mg/dL Calcium (8.5-10.1) mg/dL Total Bilirubin (0.2-1.0) mg/dL AST (15-37) IU/L ALT (14-63) IU/L Alkaline Phosphatase (46-116) U/L Troponin I (0.000-0.056) ng/mL Total Protein (6.4-8.2) g/dL Albumin (3.4-5.0) g/dL Globulin (2.6-4.0) g/dL Albumin/Globulin Ratio (0.9-1.6) HCG, Quant < 1.0 mIU/mL Meds: Medications Discontinued Medications Generic Name Dose Route Start Last Admin Trade Name Freq PRN Reason Stop Dose Admin Cyclobenzaprine HCl 10 mg 08/29/19 04:54 08/29/19 05:02 Flexeril PO 08/29/19 04:55 10 mg ONETIME ONE Administration Ketorolac Tromethamine 15 mg 08/29/19 05:38 08/29/19 05:50 Toradol IVPUSH 08/29/19 05:39 15 mg ONETIME ONE Administration Methocarbamol 1,000 mg 08/29/19 04:16 08/29/19 04:57 Methocarbamol PO 08/29/19 04:17 Not Given ONETIME ONE Methocarbamol 1,500 mg 08/29/19 04:27 08/29/19 04:57 Methocarbamol PO 08/29/19 04:28 Not Given STAT STA Morphine Sulfate 6 mg 08/29/19 03:20 08/29/19 03:28 Morphine IVPUSH 08/29/19 03:21 6 mg ONETIME ONE Administration Ondansetron HCl 4 mg 08/29/19 03:22 08/29/19 03:28 Zofran IVPUSH 08/29/19 03:23 4 mg ONETIME ONE Administration Ondansetron HCl 4 mg 08/29/19 05:38 08/29/19 05:50 Zofran IVPUSH 08/29/19 05:39 4 mg ONETIME ONE Administration Departure - Departure Time of Disposition: 06:23 Disposition: Home, Self-Care 01 Condition: Good Clinical Impression: Atypical chest pain Instructions: Nonspecific Chest Pain, [id number] Referrals: PCP,None [Primary Care Provider] - Forms: ED Department Discharge Additional Instructions: The following information is given to patients seen in the emergency department who are being discharged to home. This information is to outline your options for follow-up care. We provide all patients seen in our emergency department with a follow-up referral. The need for follow-up, as well as the timing and circumstances, are variable depending upon the specifics of your emergency department visit. If you don't have a primary care physician on staff, we will provide you with a referral. We always advise you to contact your personal physician following an emergency department visit to inform them of the circumstance of the visit and for follow-up with them and/or the need for any referrals to a consulting specialist. The emergency department will also refer you to a specialist when appropriate. This referral assures that you have the opportunity for follow-up care with a specialist. All of these measure are taken in an effort to provide you with optimal care, which includes your follow-up. Under all circumstances we always encourage you to contact your private physician who remains a resource for coordinating your care. When calling for follow-up care, please make the office aware that this follow-up is from your recent emergency room visit. If for any reason you are refused follow-up, please contact the [facility] Emergency Department at and asked to speak to the emergency department charge nurse. To the emergency department immediately for any worsening of chest pain, difficulty breathing, high fevers, cough or any other concerns. Please take ibuprofen and Tylenol as needed for pain. In addition take the Flexeril as prescribed. Avoid any strenuous activity until evaluated by your primary care doctor. Sepsis Event Note - Evaluation Sepsis Screening Result: No Definite Risk - Focused Exam Vital Signs: Vital Signs Temp Pulse Resp BP Pulse Ox 08/29/19 03:13 36.8 C 100 20 137/96 H 98 Date Exam was Performed: 08/29/19 Time Exam was Performed: 06:23 - My Orders Last 24 Hours: My Active Orders 08/29/19 03:24 EKG 12 Lead [EKG Documentation Completion] [RC] STAT - Assessment/Plan Last 24 Hours: My Active Orders 08/29/19 03:24 EKG 12 Lead [EKG Documentation Completion] [RC] STAT Assessment:: Patient 24-year-old female presenting with acute onset chest pain. Patient had unremarkable emergency department course. Patient's vital signs were within normal limits. Patient had labs including d-dimer troponin, CBC and CMP. Patient's test results were within normal limits. Patient has EKG which demonstrates normal sinus rhythm without any evidence of ischemic changes. Chest x-ray was unremarkable. Patient's pain was controlled within the emergency department. There is low concern for pulmonary embolism, cardiac ischemia, aortic dissection. Patient is atypical chest pain elevated structured to follow-up as an outpatient. Cautions addressed and answered. Patient agrees with plan
[2019-08-29] MEDS ORDERED: Ketorolac 15 MG/ML SDV IVPUSH ONE (05:38)
== END 2019-08-29 06:38 | disposition home or self-care (01) ==
LOC: MW.ED 02:56
DX: R07.89 Other chest pain (principal); Z79.899 Other long term (current) drug therapy
CPT/HCPCS: 36415; 71045; 80053; 84484; 84702; 85025; 85379; 93005; 96374; 96375; 96376; 99285; A9270; J1885; J2270; J2405

== ENCOUNTER 2021-08-04 19:25 | Inpatient (IN) | payer OTHER ==
[2021-08-04] MEDS: Lactated Ringers 1,000 ML IV SCH (19:55)
[2021-08-04] MEDS ORDERED: Lidocaine 1% 50 ML MDV INJECT PRN (20:07)
[2021-08-04] MEDS ORDERED: Ondansetron 4 MG/2 ML SDV IVPUSH PRN (20:07)
[2021-08-04] MEDS ORDERED: Methylergonovine 0.2 MG/1 ML Amp IM PRN (20:07)
[2021-08-04] MEDS ORDERED: Sodium Chloride 0.9% 2.5 ML Syringe FLUSH PRN (20:07)
[2021-08-04] MEDS ORDERED: Tranexamic Acid 1,000 MG in Sodium Chloride 0.9% 100 ML IV PRN (20:07)
[2021-08-04] MEDS ORDERED: Nalbuphine 10 MG/1 ML Vial IVPUSH PRN (20:07)
[2021-08-04] MEDS ORDERED: Sodium Chloride 0.9% 10 ML Syringe FLUSH PRN (20:07)
[2021-08-04] MEDS ORDERED: Misoprostol 200 MCG Tab PO PRN (20:07)
[2021-08-04] MEDS ORDERED: Carboprost Tromethamine 250 MCG/1 ML Amp IM PRN (20:07)
[2021-08-04] MEDS ORDERED: Butorphanol 1 MG/ML SDV IVPUSH PRN (20:07)
[2021-08-04] MEDS ORDERED: Sodium Chloride 0.9% 20 ML SDV IV PRN (20:07)
[2021-08-04] MEDS ORDERED: Water For Irrigation,Sterile 1,000 ML Container IRR PRN (20:07)
[2021-08-04] MEDS ORDERED: Oxytocin/0.9 % Sodium Chloride 30 UNIT/500 ML BAG IV SCH (20:15)
--- NOTE | 2021-08-04 20:54 | PCM.LDHP ---
L&D History of Present Illness - General Date of Service: 08/04/21 Admit Problem/Dx: Patient Status Order with Admit Dx/Problem 08/04/21 19:27 Patient Status [ADT] Routine Admission Diagnosis/Problem Admission Diagnosis/Problem - History of Present Illness Introduction:: 26yo at 40w6d YARIEL 07/30/2021 by 9w0d US presenting with early labor and SROM. Patient reports she had gush of clear fluid around 7PM. Started having light contractions every 1-3min as well. +FM, denies vaginal bleeding. She is GBS negative. Hx of baby with macrosomia of 9lbs 6oz and polyhydraminos. This baby has been measuring 62nd percentile. She had depression in her last , mood has been stable without medications. - Related Data Allergies/Adverse Reactions: Allergies Allergy/AdvReac Type Severity Reaction Status Date / Time No Known Allergies Allergy Verified 08/29/19 03:19 Home Medications: Home Meds B12/Levomefolate Calcium/B-6 [Foltx Tablet] 1 each PO DAILY 08/29/19 [History] Cyclobenzaprine [Flexeril] 10 mg PO DAILY #20 tab 08/29/19 [Rx] L.acidoph,Paracasei, B.lactis [Probiotic] 1 each PO DAILY 08/29/19 [History] Mv,Real,Iron,Mn/Folic Acid/Chol [Hair, Skin and Nails Capsule] 1 tab PO DAILY 08/29/19 [History] Past Medical History - Past Health History Medical/Surgical History: Denies Medical/Surgical History Cardiovascular History: Reports: None Respiratory History: Reports: None Gastrointestinal History: Reports: None Genitourinary History: Reports: None MATERIAL DISPATCHER History: Reports: , Other (See Below) Other OB/BYN History: septal uterus Neurological History: Reports: None Psychiatric History: Reports: Anxiety, Depression Endocrine/Metabolic History: Reports: None Dermatologic History: Reports: None - Infectious Disease History Infectious Disease History: Reports: None - Past Surgical History HEENT Surgical History: Reports: Oral Surgery, Other (See Below) Other HEENT Surgeries/Procedures: wisdom teeth Endocrine Surgical History: Reports: None Social & Family History - Family History Family Medical History: No Pertinent Family History - Caffeine Use Caffeine Use: Reports: Coffee H&P Review of Systems - Review of Systems: Review Of Systems: See Below General: Reports: No Symptoms HEENT: Reports: No Symptoms Pulmonary: Reports: No Symptoms Cardiovascular: Reports: No Symptoms Gastrointestinal: Reports: No Symptoms Genitourinary: Reports: Other (Contractions, loss of fluid.) Musculoskeletal: Reports: No Symptoms Skin: Reports: No Symptoms Psychiatric: Reports: No Symptoms Neurological: Reports: No Symptoms Hematologic/Lymphatic: Reports: No Symptoms Immunologic: Reports: No Symptoms L&D Exam - Exam Exam: See Below - Vital Signs Weight: 145 lb - OB Specific Contraction Intensity: Mild to Moderate Movement: Active Heart Tones: Present Heart Tones per Min: 120 Heart Rate (FHR) Variability: Moderate (6-25 bpm) Presentation: Vertex - Exam General: Alert, Oriented, Cooperative HEENT: Conjunctiva Clear, Mucosa Moist & Venus Neck: Supple, Trachea Midline Lungs: Clear to Auscultation, Normal Respiratory Effort GI/Abdominal Exam: Normal Bowel Sounds, Soft, Non-Tender, No Distention Genitourinary: Normal external exam, Other (3cm dilated per patient nurse) Back Exam: Normal Inspection, Full Range of Motion Extremities: Normal Inspection, Normal Range of Motion, Non-Tender, No Pedal Edema Skin: Warm, Dry, Intact Neurological: Cranial Nerves Intact, Reflexes Equal Bilateral Psychiatric: Alert, Normal Affect, Normal Mood Problem List Initiated/Reviewed/Updated: Yes Orders Last 24hrs: Active Orders 24 hr Category Date Time Status Patient Status [ADT] Routine ADT 08/04/21 19:27 Active Heart Tones [RC] CONTINUOUS Care 08/04/21 20:07 Active Non Stress Test [RC] PER UNIT ROUTINE Care 08/04/21 20:07 Active May Shower [RC] ASDIRECTED Care 08/04/21 20:07 Active Notify Provider [RC] PRN Care 08/04/21 20:07 Active Up ad Tracey [RC] ASDIRECTED Care 08/04/21 20:07 Active Vaginal Exam [RC] PRN Care 08/04/21 20:07 Active Vital Signs [RC] PER UNIT ROUTINE Care 08/04/21 20:07 Active CBC W/O DIFF,HEMOGRAM [HEME] Routine Lab 08/04/21 19:55 Received CORONAVIRUS COVID-19 NEMO [MOLEC] Routine Lab 08/04/21 20:00 Received RPR (SYPHILIS SERO) W/ RFLX [REF] Routine Lab 08/04/21 Ordered TYPE AND SCREEN [BBK] Routine Lab 08/04/21 Ordered Butorphanol [Stadol] Med 08/04/21 20:07 Active 1 mg IVPUSH Q1H PRN Carboprost Tromethamine [Hemabate DS] Med 08/04/21 20:07 Active 250 mcg IM ASDIRECTED PRN Lactated Ringers [Ringers, Lactated] 1,000 ml Med 08/04/21 20:15 Active IV ASDIRECTED Lidocaine 1% [Xylocaine 1%] Med 08/04/21 20:07 Active 50 ml INJECT ONETIME PRN Methylergonovine [Methergine] Med 08/04/21 20:07 Active 0.2 mg IM ASDIRECTED PRN Nalbuphine [Nubain] Med 08/04/21 20:07 Active 10 mg IVPUSH Q1H PRN Ondansetron [Zofran] Med 08/04/21 20:07 Active 4 mg IVPUSH Q6H PRN Oxytocin/0.9 % Sodium Chloride [Oxytocin 30 Unit in NS Med 08/04/21 20:15 Active 0.9% 500 ML Premix] 30 unit in 500 ml IV TITRATE Sodium Chloride 0.9% [Normal Saline] Med 08/04/21 20:07 Active 10 ml IV ASDIRECTED PRN Sodium Chloride 0.9% [Saline Flush] Med 08/04/21 20:07 Active 10 ml FLUSH ASDIRECTED PRN Sodium Chloride 0.9% [Saline Flush] Med 08/04/21 20:07 Active 2.5 ml FLUSH ASDIRECTED PRN Tranexamic Acid [Cyklokapron] 1,000 mg Med 08/04/21 20:07 Active Sodium Chloride 0.9% [Normal Saline] 100 ml IV ONETIME Water For Irrigation,Sterile [Sterile Water for Med 08/04/21 20:07 Active Irrigation] 1,000 ml IRR ASDIRECTED PRN miSOPROStoL [Cytotec] Med 08/04/21 20:07 Active 200 mcg PO ONETIME PRN Scalp Electrode [WOMSER] Per Unit Routine Oth 08/04/21 20:07 Ordered Peripheral IV Insertion Adult [OM.PC] Routine Oth 08/04/21 20:07 Ordered Resuscitation Status Routine Resus Stat 08/04/21 20:07 Ordered Medication Orders Butorphanol Tartrate (Butorphanol 1 Mg/Ml Sdv) 1 mg IVPUSH Q1H PRN PRN Reason: Pain (severe 7-10) Carboprost Tromethamine (Carboprost Tromethamine 250 Mcg/1 Ml Amp) 250 mcg IM ASDIRECTED PRN PRN Reason: Post Hemorrhage Oxytocin/Sodium Chloride (Oxytocin 30 Unit In Ns 0.9% 500 Ml Premix) 30 unit in 500 mls @ 500 mls/hr IV TITRATE [facility] Tranexamic Acid 1,000 mg/ (Sodium Chloride) 110 mls @ 660 mls/hr IV ONETIME PRN PRN Reason: Bleeding Lactated Ringer's (Ringers, Lactated) 1,000 mls @ 150 mls/hr IV ASDIRECTED SHAHNAZ Lidocaine HCl (Lidocaine 1% 50 Ml Mdv) 50 ml INJECT ONETIME PRN PRN Reason: Laceration repair Methylergonovine Maleate (Methylergonovine 0.2 Mg/1 Ml Amp) 0.2 mg IM ASDIRECTED PRN PRN Reason: Post Hemorrhage Misoprostol (Misoprostol 200 Mcg Tab) 200 mcg PO ONETIME PRN PRN Reason: Post Hemorrhage Nalbuphine HCl (Nalbuphine 10 Mg/1 Ml Vial) 10 mg IVPUSH Q1H PRN PRN Reason: Pain (severe 7-10) Ondansetron HCl (Ondansetron 4 Mg/2 Ml Sdv) 4 mg IVPUSH Q6H PRN PRN Reason: Nausea/Vomiting Sodium Chloride (Sodium Chloride 0.9% 10 Ml Syringe) 10 ml FLUSH ASDIRECTED PRN PRN Reason: Keep Vein Open Sodium Chloride (Sodium Chloride 0.9% 2.5 Ml Syringe) 2.5 ml FLUSH ASDIRECTED PRN PRN Reason: Keep Vein Open Sodium Chloride (Sodium Chloride 0.9% 20 Ml Sdv) 10 ml IV ASDIRECTED PRN PRN Reason: IV Use Sterile Water (Water For Irrigation,Sterile 1,000 Ml Container) 1,000 ml IRR ASDIRECTED PRN PRN Reason: delivery Assessment/Plan Comment:: 26yo at 40w6d presenting in early labor and SROM. - admit to L&D, CBC, RPR, T&S, COVID19 test - GBS negative - A+, Rubella Immune - Cat 1 tracing - Epidural or pain meds PRN - Expectant management, if does not make further cervical change, will augment with pitocin
[2021-08-04] MEDS ORDERED: Ropivacaine HCl/PF 200 ML ONE (23:52)
--- NOTE | 2021-08-05 | PCM.POSTAN ---
POST ANESTHESIA ASSESSMENT - MENTAL STATUS Mental Status: Alert, Oriented - RESPIRATORY Respiratory Status: Respiratory Rate WNL, Airway Patent, O2 Saturation Stable - CARDIOVASCULAR CV Status: Pulse Rate WNL, Blood Pressure Stable - GASTROINTESTINAL GI Status: No Symptoms - POST OP HYDRATION Hydration Status: Adequate & Stable
--- NOTE | 2021-08-05 | PCM.PREANE ---
Preanesthetic Assessment - Anesthesia/Transfusion/Family Hx Anesthesia History: Prior Anesthesia Without Reaction Transfusion History: No Prior Transfusion(s) - Review of Systems General: No Symptoms Pulmonary: No Symptoms Cardiovascular: No Symptoms Gastrointestinal: No Symptoms Neurological: No Symptoms Other: Reports: None - Physical Assessment NPO Status Date: 08/04/21 NPO Status Time: 17:00 Height: 5 ft 1 in Weight: 145 lb ASA Class: 2 Mental Status: Alert & Oriented x3 Airway Class: Mallampati = 2 Dentition: Reports: Normal Dentition Thyro-Mental Finger Breadths: 3 Mouth Opening Finger Breadths: 3 ROM/Head Extension: Full Lungs: Clear to Auscultation, Normal Respiratory Effort Cardiovascular: Regular Rate, Regular Rhythm - Lab Values: Laboratory Last Values WBC 12.96 K/uL (4.0-11.0) H 08/04/21 20:52 RBC 4.37 M/uL (4.30-5.90) 08/04/21 20:52 Hgb 12.2 g/dL (12.0-16.0) 08/04/21 20:52 Hct 37.1 % (36.0-46.0) 08/04/21 20:52 MCV 84.9 fL (80.0-98.0) 08/04/21 20:52 MCH 27.9 pg (27.0-32.0) 08/04/21 20:52 MCHC 32.9 g/dL (31.0-37.0) 08/04/21 20:52 RDW Std Deviation 49.0 fl (28.0-62.0) 08/04/21 20:52 RDW Coeff of Jackie 16 % (11.0-15.0) H 08/04/21 20:52 Plt Count 190 K/uL (150-400) 08/04/21 20:52 MPV 11.10 fL (7.40-12.00) 08/04/21 20:52 Nucleated RBC % 0.0 /100WBC 08/04/21 20:52 Nucleated RBCs # 0 K/uL 08/04/21 20:52 SARS-CoV-2 RNA (NEMO) NEGATIVE (NEGATIVE) 08/04/21 20:00 Blood Type A POSITIVE 08/04/21 20:52 Antibody Screen NEGATIVE 08/04/21 20:52 - Allergies Allergies/Adverse Reactions: Allergies Allergy/AdvReac Type Severity Reaction Status Date / Time No Known Allergies Allergy Verified 08/29/19 03:19 - Acknowledgements Anesthesia Type Planned: Epidural Pt an Appropriate Candidate for the Planned Anesthesia: Yes Alternatives and Risks of Anesthesia Discussed w Pt/Guardian: Yes Pt/Guardian Understands and Agrees with Anesthesia Plan: Yes PreAnesthesia Questionnaire - Past Health History Medical/Surgical History: Denies Medical/Surgical History Cardiovascular History: Reports: None Respiratory History: Reports: None Gastrointestinal History: Reports: None Genitourinary History: Reports: None SEAT MENDER History: Reports: , Other (See Below) Other OB/BYN History: septal uterus Neurological History: Reports: None Psychiatric History: Reports: Anxiety, Depression Endocrine/Metabolic History: Reports: None Dermatologic History: Reports: None - Infectious Disease History Infectious Disease History: Reports: None - Past Surgical History HEENT Surgical History: Reports: Oral Surgery, Other (See Below) Other HEENT Surgeries/Procedures: wisdom teeth Endocrine Surgical History: Reports: None - HOME MEDS Home Medications: Home Meds B12/Levomefolate Calcium/B-6 [Foltx Tablet] 1 each PO DAILY 08/29/19 [History] Cyclobenzaprine [Flexeril] 10 mg PO DAILY #20 tab 08/29/19 [Rx] L.acidoph,Paracasei, B.lactis [Probiotic] 1 each PO DAILY 08/29/19 [History] Mv,Real,Iron,Mn/Folic Acid/Chol [Hair, Skin and Nails Capsule] 1 tab PO DAILY 08/29/19 [History] - CURRENT (IN HOUSE) MEDS Current Meds: Current Medications Butorphanol Tartrate (Butorphanol 1 Mg/Ml Sdv) 1 mg IVPUSH Q1H PRN PRN Reason: Pain (severe 7-10) Carboprost Tromethamine (Carboprost Tromethamine 250 Mcg/1 Ml Amp) 250 mcg IM ASDIRECTED PRN PRN Reason: Post Hemorrhage Oxytocin/Sodium Chloride (Oxytocin 30 Unit In Ns 0.9% 500 Ml Premix) 30 unit in 500 mls @ 500 mls/hr IV TITRATE SHAHNAZ Tranexamic Acid 1,000 mg/ (Sodium Chloride) 110 mls @ 660 mls/hr IV ONETIME PRN PRN Reason: Bleeding Lactated Ringer's (Ringers, Lactated) 1,000 mls @ 150 mls/hr IV ASDIRECTED SHAHNAZ Last Admin: 08/04/21 19:55 Dose: 150 mls/hr Documented by: Lidocaine HCl (Lidocaine 1% 50 Ml Mdv) 50 ml INJECT ONETIME PRN PRN Reason: Laceration repair Methylergonovine Maleate (Methylergonovine 0.2 Mg/1 Ml Amp) 0.2 mg IM ASDIRECTED PRN PRN Reason: Post Hemorrhage Misoprostol (Misoprostol 200 Mcg Tab) 200 mcg PO ONETIME PRN PRN Reason: Post Hemorrhage Nalbuphine HCl (Nalbuphine 10 Mg/1 Ml Vial) 10 mg IVPUSH Q1H PRN PRN Reason: Pain (severe 7-10) Ondansetron HCl (Ondansetron 4 Mg/2 Ml Sdv) 4 mg IVPUSH Q6H PRN PRN Reason: Nausea/Vomiting Sodium Chloride (Sodium Chloride 0.9% 10 Ml Syringe) 10 ml FLUSH ASDIRECTED PRN PRN Reason: Keep Vein Open Sodium Chloride (Sodium Chloride 0.9% 2.5 Ml Syringe) 2.5 ml FLUSH ASDIRECTED PRN PRN Reason: Keep Vein Open Sodium Chloride (Sodium Chloride 0.9% 20 Ml Sdv) 10 ml IV ASDIRECTED PRN PRN Reason: IV Use Sterile Water (Water For Irrigation,Sterile 1,000 Ml Container) 1,000 ml IRR ASDIRECTED PRN PRN Reason: delivery Discontinued Medications Ropivacaine (Naropin 0.2%) Confirm Administered Dose 200 mls @ as directed .ROUTE .STK-MED ONE Stop: 08/04/21 23:53
[2021-08-05] MEDS: Lactated Ringers 1,000 ML IV SCH (00:01)
[2021-08-05] MEDS ORDERED: ePHEDrine 50 MG/ML SDV IVPUSH PRN ×2 (00:02)
--- NOTE | 2021-08-05 00:02 | PCM.SN.2 ---
- Pre-Procedure Checklist Attending Provider Aware: Yes Chart Reviewed: Yes Consent Signed: Yes Labs Reviewed: Yes VS/FHR Reviewed: Yes Patient Identification Confirmation Method: Reports: Chart Visual, ID Band Visual, Verbal Patient Pt an Appropriate Candidate for the Planned Anesthesia: Yes Alternatives and Risks of Anesthesia Discussed w Pt/Guardian: Yes - Procedure Procedure Start Date: 08/04/21 Procedure Start Time: 23:[address]: Reports: Blood Pressure, Heart Rate, SPO2 Functional IV: Yes Safety Measures: Reports: Patient Identified, Procedure Verified, Site Verified, Procedure Time Out Patient Position: Reports: Sitting Prep: Reports: Alcohol x3, Betadine x3 Local Anesthetic: Reports: Intradermal Wheal w Lidocaine 1% Regional Placement Level: Reports: L3-4 Needle: Reports: 17 g Touhy Approach: Reports: Midline Technique: Reports: SHAISTA Glass Syringe Parasthesia: Reports: None Fluid Obtained: Reports: None Test Dose Medication: Reports: Lidocaine 1.5% w Epinephrine 1:200,000 Test Dose Response: Reports: Negative Continuous Infusion Start Time: 23:50 Continuous Infusion Medication: 0.2% Naropin Continuous Infusion Rate: 15 Continuous Infusion PCS Bolus Option: 4 Continuous Infusion Lockout Dose (cc/hr): 28 Patient Position Post Placement: Reports: Supline/RENITA Post-procedure Pain Level: 2 VS and FHR Monitored in Unit Post Placement: Yes Procedure End Date: 08/05/21 Procedure End Time: 00:42
[2021-08-05] MEDS ORDERED: Ropivacaine/PF 400 MG/200 ML PCA EPIDUR SCH (00:15)
[2021-08-05] MEDS ORDERED: Bisacodyl 10 MG Supp RECTAL PRN (02:50)
[2021-08-05] MEDS ORDERED: Ibuprofen 400 MG Tab PO PRN (02:50)
[2021-08-05] MEDS ORDERED: Acetaminophen 500 MG Tab PO PRN (02:50)
[2021-08-05] MEDS ORDERED: oxyCODONE 5 MG Tab PO PRN (02:50)
[2021-08-05] MEDS ORDERED: Lanolin 100% Cream 7 GM Tube TOP PRN (02:50)
--- NOTE | 2021-08-05 03:35 | OR ---
SURGEON: Jac Almaguer MD DATE OF PROCEDURE: 08/05/2021 INDICATION FOR PROCEDURE: A 26-year-old G2, P1-0-0-1 at 41 weeks and 0 days, presented with early labor and spontaneous rupture of membranes. The patient reports she had a gush of clear fluid around 7 p.m. She then started to have mild contractions every 2 to 3 minutes. After presenting to Labor and Delivery, she was found to be 3 cm dilated. Membrane rupture was confirmed with AmnioSure. The baby had category 1 tracing. She is GBS negative. Her previous was complicated by macrosomia and polyhydramnios. This , the baby had serial growth ultrasounds and was measuring 62nd percentile. She also had depression last . Her mood has been stable without any medications during this . Her labor was expectantly managed until for 5 hours. She did not make cervical change; therefore Pitocin was started for augmentation of labor. She felt stronger contractions and desired an epidural, which she received with good pain control. She then quickly progressed to fully dilated with the urge to push. PREOPERATIVE DIAGNOSES: 1. Narayanan intrauterine at 41 weeks and 0 days. 2. Active labor. POSTOPERATIVE DIAGNOSES: 1. Narayanan intrauterine at 41 weeks and 0 days. 2. Active labor. PROCEDURE PERFORMED: Normal spontaneous vaginal delivery, repair of first-degree laceration. ANESTHESIOLOGIST: Dr. Osmani Pack. ANESTHESIA: Epidural. FINDINGS: Viable male , score of 9 and 10, weight of 3690 g. ESTIMATED BLOOD LOSS: 200 mL. DESCRIPTION OF PROCEDURE: The patient pushed with 2 contractions with good descent. head delivered in occiput anterior position over intact perineum, restituted ROT. Anterior shoulder delivered easily followed by posterior shoulder and remaining body. No nuchal cord was noted. The baby was placed on maternal chest and evaluated by awaiting nursery staff. The baby was pink, crying vigorously, and moving all extremities immediately after delivery. The umbilical cord was clamped and cut after about 3 minutes and no longer pulsating. Umbilical cord gases were obtained. The placenta was removed with gentle traction on the umbilical cord. It was examined to be intact with 3- vessel cord. The fundus was firm and below the umbilicus and the bleeding was light. The vagina and perineum were examined. She had a first-degree laceration, which was repaired with 3-0 Vicryl in the usual fashion. The patient tolerated the procedure well and was given care instructions. YESENIA PALMA /[id number] MTDD
[2021-08-05] MEDS: Ibuprofen 800 MG Tab PO PRN ×3 (04:10→19:24)
[2021-08-05] MEDS: Acetaminophen 500 MG Tab PO PRN ×4 (04:11→21:06)
[2021-08-05] MEDS: Benzocaine/Menthol 20%-0.5% Spray 78 GM Cannister TOP PRN (04:13)
[2021-08-05] MEDS: Witch Hazel Medicated Pads 40/Jar TOP PRN (04:13)
--- NOTE | 2021-08-05 11:39 | PCM48HPAN ---
Post Anesthesia Note - EVALUATION WITHIN 48HRS OF ANESTHETIC Vital Signs in Normal Range: Yes Patient Participated in Evaluation: Yes Respiratory Function Stable: Yes Airway Patent: Yes Cardiovascular Function Stable: Yes Hydration Status Stable: Yes Pain Control Satisfactory: Yes Nausea and Vomiting Control Satisfactory: Yes Mental Status Recovered: Yes Vital Signs: Last Vital Signs Temp 97.5 F 08/05/21 08:31 Pulse 87 08/05/21 08:31 Resp 15 08/05/21 08:31 BP 100/57 L 08/05/21 08:31 Pulse Ox 99 08/05/21 08:31
[2021-08-05] MEDS: Docusate Sodium 100 MG Cap PO PRN ×2 (12:34→21:06)
[2021-08-06] MEDS: Ibuprofen 800 MG Tab PO PRN (03:03)
[2021-08-06] MEDS: Acetaminophen 500 MG Tab PO PRN ×2 (03:04→09:03)
[2021-08-06] MEDS: Witch Hazel Medicated Pads 40/Jar TOP PRN (09:04)
[2021-08-06] MEDS: Docusate Sodium 100 MG Cap PO PRN (09:04)
--- NOTE | 2021-08-06 10:20 | PCM.PNPP ---
- General Info Date of Service: 08/06/21 Functional Status: Reports: Pain Controlled, Tolerating Diet, Ambulating, Urinating - Review of Systems General: Reports: No Symptoms HEENT: Reports: No Symptoms Pulmonary: Reports: No Symptoms Cardiovascular: Reports: No Symptoms Gastrointestinal: Reports: No Symptoms Genitourinary: Reports: No Symptoms Musculoskeletal: Reports: No Symptoms Skin: Reports: No Symptoms Neurological: Reports: No Symptoms Psychiatric: Reports: No Symptoms - Patient Data Vital Signs - Most Recent: Last Vital Signs Temp 36.4 C 08/06/21 07:40 Pulse 77 08/06/21 07:40 Resp 15 08/06/21 07:40 BP 101/63 08/06/21 07:40 Pulse Ox 97 08/06/21 07:40 Weight - Most Recent: 145 lb Lab Results - Last 24 Hours: Laboratory Results - last 24 hr 08/06/21 Range/Units 05:15 Hgb 11.6 L (12.0-16.0) g/dL Hct 35.8 L (36.0-46.0) % Med Orders - Current: Current Medications Acetaminophen (Acetaminophen 500 Mg Tab) 500 mg PO Q4H PRN PRN Reason: Pain (mild 1-3) Acetaminophen (Acetaminophen 500 Mg Tab) 1,000 mg PO Q4H PRN PRN Reason: Pain (mild 1-3) Last Admin: 08/06/21 09:03 Dose: 1,000 mg Documented by: Benzocaine/Menthol (Benzocaine/Menthol 20%-0.5% [place] 78 Gm Cannister) 78 gm TOP ASDIRECTED PRN PRN Reason: Perineal Comfort Measure Last Admin: 08/05/21 04:13 Dose: 1 spray Documented by: Bisacodyl (Bisacodyl 10 Mg Supp) 10 mg RECTAL ONETIME PRN PRN Reason: Constipation Docusate Sodium (Docusate Sodium 100 Mg Cap) 100 mg PO Q12H PRN PRN Reason: Constipation Last Admin: 08/06/21 09:04 Dose: 100 mg Documented by: Emollient Ointment (Lanolin 100% Cream 7 Gm Tube) 0 gm TOP ASDIRECTED PRN PRN Reason: Sore Nipples Last Admin: 08/05/21 12:34 Dose: 7 gm Documented by: Ephedrine Sulfate (Ephedrine 50 Mg/Ml Sdv) 10 mg IVPUSH Q1M PRN PRN Reason: Hypotension Ephedrine Sulfate (Ephedrine 50 Mg/Ml Sdv) 10 mg IVPUSH Q5M PRN PRN Reason: Hypotension Ibuprofen (Ibuprofen 400 Mg Tab) 400 mg PO Q4H PRN PRN Reason: Pain (mild 1-3) Ibuprofen (Ibuprofen 800 Mg Tab) 800 mg PO Q6H PRN PRN Reason: Cramping Last Admin: 08/06/21 03:03 Dose: 800 mg Documented by: Miscellaneous Medication (Phenylephrine Hcl In 0.9% Nacl 1 Mg/10 Ml Syringe) 0.1 mg IVPUSH Q1M PRN PRN Reason: Hypotension Oxycodone HCl (Oxycodone 5 Mg Tab) 5 mg PO Q2H PRN PRN Reason: Pain (severe 7-10) Ropivacaine (Ropivacaine/Pf 400 Mg/200 Ml Vice President Of Instruction) 400 mg EPIDUR ASDIRECTED SHAHNAZ Sodium Chloride (Sodium Chloride 0.9% 10 Ml Syringe) 10 ml FLUSH ASDIRECTED PRN PRN Reason: Keep Vein Open Sodium Chloride (Sodium Chloride 0.9% 2.5 Ml Syringe) 2.5 ml FLUSH ASDIRECTED PRN PRN Reason: Keep Vein Open Sodium Chloride (Sodium Chloride 0.9% 20 Ml Sdv) 10 ml IV ASDIRECTED PRN PRN Reason: IV Use Witch Franny (Witch Franny Medicated Pads 40/Jar) 1 pad TOP ASDIRECTED PRN PRN Reason: comfort care Last Admin: 08/06/21 09:04 Dose: 1 pad Documented by: Discontinued Medications Butorphanol Tartrate (Butorphanol 1 Mg/Ml Sdv) 1 mg IVPUSH Q1H PRN PRN Reason: Pain (severe 7-10) Carboprost Tromethamine (Carboprost Tromethamine 250 Mcg/1 Ml Amp) 250 mcg IM ASDIRECTED PRN PRN Reason: Post Hemorrhage Oxytocin/Sodium Chloride (Oxytocin 30 Unit In Ns 0.9% 500 Ml Premix) 30 unit in 500 mls @ 500 mls/hr IV TITRATE [facility] Last Infusion: 08/05/21 02:31 Dose: 500 mls/hr Documented by: Tranexamic Acid 1,000 mg/ (Sodium Chloride) 110 mls @ 660 mls/hr IV ONETIME PRN PRN Reason: Bleeding Lactated Ringer's (Ringers, Lactated) 1,000 mls @ 150 mls/hr IV ASDIRECTED SHAHNAZ Last Admin: 08/05/21 00:01 Dose: 150 mls/hr Documented by: Ropivacaine (Naropin 0.2%) Confirm Administered Dose 200 mls @ as directed .ROUTE .[employer]-MED ONE Stop: 08/04/21 23:53 Last Admin: 08/05/21 03:47 Dose: Not Given Documented by: Lidocaine HCl (Lidocaine 1% 50 Ml Mdv) 50 ml INJECT ONETIME PRN PRN Reason: Laceration repair Methylergonovine Maleate (Methylergonovine 0.2 Mg/1 Ml Amp) 0.2 mg IM ASDIRECTED PRN PRN Reason: Post Hemorrhage Misoprostol (Misoprostol 200 Mcg Tab) 200 mcg PO ONETIME PRN PRN Reason: Post Hemorrhage Nalbuphine HCl (Nalbuphine 10 Mg/1 Ml Vial) 10 mg IVPUSH Q1H PRN PRN Reason: Pain (severe 7-10) Ondansetron HCl (Ondansetron 4 Mg/2 Ml Sdv) 4 mg IVPUSH Q6H PRN PRN Reason: Nausea/Vomiting Sterile Water (Water For Irrigation,Sterile 1,000 Ml Container) 1,000 ml IRR ASDIRECTED PRN PRN Reason: delivery - Infant Interaction Support Person: - Recovery Exam Fundal Tone: Firm Fundal Level: 2 Fingerbreadths Below Umbilicus Fundal Placement: Midline Lochia Amount: Scant Lochia Color: Rubra/Red Perineum Description: Intact, Minimal Bruising/Swelling Episiotomy/Laceration: Approximated Bladder Status: Voiding Urinary Elimination: Voided - Exam General: Alert, Oriented, Cooperative, No Acute Distress HEENT: Pupils Equal, Pupils Reactive, EOMI Neck: Supple, Trachea Midline, No JVD Lungs: Normal Respiratory Effort GI/Abdominal Exam: Soft, Non-Tender, No Distention Extremities: Normal Inspection, Normal Range of Motion, Non-Tender, No Pedal Edema Skin: Warm, Dry, Intact Wound/Incisions: Healing Well Neurological: No New Focal Deficit Psy/Mental Status: Alert, Normal Affect, Normal Mood - Problem List Review Problem List Initiated/Reviewed/Updated: Yes - My Orders Last 24 Hours: My Active Orders 08/06/21 10:14 Ready for Discharge [RC] PER UNIT ROUTINE - Plan Plan:: 26yo PPD1 s/p , stable and recovering well. - vital stable - A+, Rubella Immune - ambulating and tolerating PO - bleeding light, Hgb stable Stable for discharge home today, reviewed care instructions
[2021-08-06] MEDS: Benzocaine/Menthol 20%-0.5% Spray 78 GM Cannister TOP PRN (10:48)
== END 2021-08-06 10:58 | disposition home or self-care (01) | DRG 807 ==
LOC: MW.OB 19:25 → MW.OBCHECK 19:25 → MW.OB 19:27 → MW.OBCHECK 19:27 → OBSVTOIN 08-05 02:31 → MW.OB 08-05 05:47
PROVIDERS: ADMIT Pediatrics; ATTEND Pediatrics
PROC: 10E0XZZ Delivery of Products of Conception, External Approach (ICD-10-PCS; principal; 2021-08-05)
PROC: 0HQ9XZZ Repair Perineum Skin, External Approach (ICD-10-PCS; 2021-08-05)
PROC: 3E0R3BZ Introduction of Anesthetic Agent into Spinal Canal, Percutaneous Approach (ICD-10-PCS; 2021-08-05)
PROC: 00HU33Z Insertion of Infusion Device into Spinal Canal, Percutaneous Approach (ICD-10-PCS; 2021-08-05)
DX: O48.0 Post-term pregnancy (principal); Z37.0 Single live birth; O70.0 First degree perineal laceration during delivery; Z20.822 Contact with and (suspected) exposure to COVID-19; O77.0 Labor and delivery complicated by meconium in amniotic fluid; Z3A.40 40 weeks gestation of pregnancy
CPT/HCPCS: 01967; 36415; 51702; 59025; 59409; 85014; 85018; 85027; 86592; 86850; 86900; 86901; A9270-GY; J2590; J2795; J7120; U0002

== ENCOUNTER 2025-06-02 14:54 | Emergency (ER) | payer OTHER ==
[2025-06-02 15:36] LABS: BASOPHILS ABSOLUTE AUTO 0.05 K/uL (0.00-0.20); BASOPHILS PERCENT AUTO 0.4 % (0.0-1.0); EOSINOPHILS ABSOLUTE AUTO 0.07 K/uL (0.00-0.45); EOSINOPHILS PERCENT AUTO 0.6 % (0.0-6.0); IMMATURE GRAN ABSOLUTE AUTO 0.03 K/uL (0.00-0.05); IMMATURE GRAN PERCENT AUTO 0.3 % (0.0-0.4); LYMPHOCYTES ABSOLUTE AUTO 1.60 K/uL (1.00-4.80); LYMPHOCYTES PERCENT AUTO 13.6 % (24.0-44.0); MEAN PLATELET VOLUME 9.8 fL (9.4-12.3); MONOCYTES ABSOLUTE AUTO 0.78 K/uL (0.00-0.80); MONOCYTES PERCENT AUTO 6.6 % (0.0-8.0); NEUTROPHILS ABSOLUTE AUTO 9.24 K/uL (1.80-7.70); NEUTROPHILS PERCENT AUTO 78.5 % (41.0-71.0); NRBC ABSOLUTE 0.00 K/uL (0.00-0.02); NRBC PERCENT 0.0 /100WBC (0.0-0.2); PLATELET COUNT,PLT 343 K/uL (150-400); RED BLOOD CELL COUNT 4.71 M/uL (4.10-5.30); WHITE BLOOD CELL COUNT,WBC 11.77 K/uL (3.9-11.3)
[2025-06-02 16:05] LABS: APPEARANCE,URINE CLEAR; GLUCOSE,URINE NEGATIVE (NEGATIVE); OCCULT BLOOD,URINE NEGATIVE (NEGATIVE)
[2025-06-02 16:05] LABS: A/G RATIO 1.3 (0.9-1.6); ALANINE AMINOTRANSFERASE,ALT 14 IU/L (14-63); ASPARTATE AMNIOTRANSFERASE,AST 15 IU/L (15-37); BILIRUBIN TOTAL 0.3 mg/dL (0.2-1.0); BLOOD UREA NITROGEN,BUN 13 mg/dL (7.0-18.0); CARBON DIOXIDE,CO2 25.7 mmol/L (21.0-32.0); CHLORIDE,CL 104 mmol/L (98-107); CREATININE 0.8 mg/dL (0.6-1.0); EST CRCL DRUG DOSING (CG) 73.19 mL/min; ETHANOL BLOOD MEDICAL <3 mg/dL; GLUCOSE RANDOM 106 mg/dL (74-106); POTASSIUM,K 3.9 mmol/L (3.5-5.1); PROTEIN TOTAL,TP 7.7 g/dL (6.4-8.2); SODIUM,NA 137 mmol/L (136-145); TSH ULTRASENSITIVE 0.81 uIU/mL (0.36-3.74)
[2025-06-02 16:11] LABS: ESTIMATED GFR 101 mL/min (>60)
[2025-06-02 16:27] LABS: AMPHETAMINES SCREEN, URINE NEGATIVE (CUTOFF=500); BUPRENORPHINE SCREEN,URINE NEGATIVE (CUTOFF=10); METHADONE SCREEN, URINE NEGATIVE (CUTOFF=200); METHAMPHETAMINES SCREEN, URINE NEGATIVE (CUTOFF=500); OXYCODONE SCREEN,URINE NEGATIVE (CUT0FF=100); PCP SCREEN,URINE NEGATIVE (CUTOFF=25); THC SCREEN,URINE 20 NG/ML NEGATIVE (CUTOFF=50)
== END 2025-06-02 17:00 ==
LOC: MW.ED 14:54
DX: F23 Brief psychotic disorder (principal); F20.0 Paranoid schizophrenia; R46.89 Other symptoms and signs involving appearance and behavior; D53.9 Nutritional anemia, unspecified; Z00-Z99 Factors influencing health status and contact with health services; Z79.899 Other long term (current) drug therapy
CPT/HCPCS: 36415; 70450; 70450-26; 80053; 80143; 80179; 80305; 80307; 81003; 83735; 84443; 84703; 85025; 93005; 99285